=== PATIENT | female | born 1940 | race Caucasian/White ===

== ENCOUNTER 2017-04-27 10:22 | Emergency (ER) | payer MEDICARE, BC ==
[2014-10-25 13:18] VITALS: BMI 26.7
[~2017-04-27 10:22] MED LIST: ALDACTONE25 MG PO; LACTOSE; LASIX20 MG PO; NEXIUM20 MG PO; PROBIOTIC1 EAC1 PO; VITAMIN D3400 UNI1
[2017-04-27 18:25] LABS: BASOPHILS 0.4 % (0-2); EOSINOPHILS 0.6 % (0-7); HEMATOCRIT 27.3 % (36.0-48.0); HEMOGLOBIN 9.8 g/dL (12-16); IMMATURE GRANULOCYTES 0.6 % (0-5); LYMPHOCYTES 14.5 % (15-50); MCH 37.4 pg (26.0-34.0); MCHC 35.9 g/dL (31.0-37.0); MCV 104.2 fL (80.0-100.0); MEAN PLATELET VOLUME 10.8 fL (7.4-10.4); NEUTROPHILS 70.9 % (40-80); RBC 2.62 10x6/uL (4.00-5.40); RDW 15.6 % (11.5-14.5); WBC 5.2 10x3/uL (4.8-10.8)
[2017-04-27 18:39] LABS: INR 2.62 (0.85-1.17); PROTIME 28.2 SECONDS (11.6-15.0)
[2017-04-27 18:43] LABS: PLATELET COUNT 77 10x3/uL (130-400)
[2017-04-27 19:14] LABS: PLATELET ESTIMATE DECREASED
== END 2017-04-27 17:44 | disposition home or self-care (01) ==
LOC: D.ER 10:22 → D.LAB 10:22 → D.ER 17:44
PROVIDERS: Internal Medicine Gastroenterology
DX: M25.552 Pain in left hip (principal)

== ENCOUNTER → 2017-07-27 10:13 | Outpatient (CLI) | payer MEDICARE, BC ==
[2014-10-25 13:18] VITALS: BMI 26.7
[~2017-07-27 10:13] MED LIST changes: +CHRONULAC30 ML PO; +XIFAXAN550 MG PO
== END | disposition home or self-care (01) ==
LOC: D.LAB 10:13
DX: K74.60 Unspecified cirrhosis of liver (principal); Z01.812 Encounter for preprocedural laboratory examination

== ENCOUNTER 2017-07-30 09:57 | Day surgery (SDC) | payer MEDICARE, BC ==
[2017-07-27 10:46] LABS: HEMATOCRIT 26.7 % (36.0-48.0); HEMOGLOBIN 9.8 g/dL (12-16); LYMPHOCYTES 35.7 % (15-50); MCH 37.7 pg (26.0-34.0); MCHC 36.7 g/dL (31.0-37.0); MCV 102.7 fL (80.0-100.0); MEAN PLATELET VOLUME 11.2 fL (7.4-10.4); NEUTROPHILS 51.5 % (40-80); PLATELET COUNT 67 10x3/uL (130-400); RDW 17.8 % (11.5-14.5); WBC 4.1 10x3/uL (4.8-10.8)
[2017-07-27 11:08] LABS: INR 2.22 (0.85-1.17); PROTIME 23.6 SECONDS (11.6-15.0)
[~2017-07-30] VITALS: Ht 170.2 cm; Wt 63.6 kg
--- NOTE | ~2017-07-30 | OP ---
PATIENT NAME: PAXTON HUIZAR MEDICAL RECORD: [id number] LOCATION:D.OPS ADMISSION DATE: SURGEON: MAURI FLYNN MD DATE OF OPERATION: 07/30/2017 PROCEDURE: EGD with biopsy and colonoscopy with biopsy. REFERRING PHYSICIAN: Griselda Calderon MD INDICATION: Ms. 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 She is on lactulose 15 cc twice a day as well as Xifaxan for hyperammonemia. She is chronically anemic, her INR is 2.3. She has a history of colon polyps, has been having diarrhea. Her last colonoscopy was with Dr. Rosalva Graf ([facility]) 10/03/2015 with findings showing medium sized internal hemorrhoids and small non-bleeding AVM seen in the ascending colon. She presents for outpatient EGD and colonoscopy. PREMEDICATIONS: Total IV anesthesia (ASA 3, cirrhosis) propofol 250 mg. INSTRUMENT: Olympus video gastroscope (GIF H190). PROCEDURE AND FINDINGS: After receiving informed consent, Ms. Huizar's posterior pharynx was anesthetized with Cetacaine spray. She was placed in left lateral decubitus position and sedated as per anesthesia. After achieving adequate level of sedation, gastroscope was introduced per orally and advanced into the second portion of duodenum without difficulty. The esophageal mucosa was without erythema, ulcers, strictures, or masses. There were no esophageal varices present. The Z-line was normal in appearance and the small sliding type hiatal hernia was noted. Gastric mucosa was notable for mild prepyloric and antral erythema and antral biopsies were obtained to rule out Helicobacter pylori. There were few scattered tiny angioectasias in the prepyloric and antral region, nonhemorrhagic. There were no varices noted in the cardia or fundus. Pylorus was patent and competent. Duodenal mucosa was without erythema or ulcers, appeared normal through the second portion. Biopsy was taken from the second portion of duodenum. Gastroscope was then withdrawn and Ms. Huizar was then prepared for colonoscopy. Digital rectal exam was performed that showed a few external hemorrhoidal tags, no fissures or fistulas, normal sphincter tone, no palpable rectal masses. The gastroscope was introduced per rectally and advanced to the mid transverse colon. She had abdominopelvic adhesions, which precluded further advancement of the gastroscope. A good prep was present and liquid was collected from the colon and sent for studies A few diverticula were seen scattered in the sigmoid colon. There was also minimal patchy erythema in the sigmoid colon and biopsies were obtained to rule out microscopic colitis. There were few early rectal varices noted, nonhemorrhagic. Ms. Garnica tolerated the procedure well, no immediate complications. ASSESSMENT: 1. Small sliding type hiatal hernia. 2. Small gastric angioectasias, nonhemorrhagic. 3. Mild gastritis. 4. Partial colonoscopy completed to mid transverse colon (adhesions precluded OPERATIVE REPORT [id number] PAXTON HUIZAR further advancement of the gastroscope). 5. Sigmoid diverticulosis coli. 6. Minimal nonspecific colitis may be prep related, status post sigmoid biopsy. 7. Early rectal varices. 8. Diarrhea, may likely be secondary to lactulose. RECOMMENDATIONS: 1. Followup histopathology. 2. Stool sent for studies. 3. Continue lactulose 15 cc twice a day, Xifaxan 550 mg twice a day, and spironolactone 50 mg p.o. daily. TRANSINT:[id number] Voice Confirmation ID: [id number] DOCUMENT ID: [id number] MAURI FLYNN MD at 1806 CC: ROSALVA GRAF MD and GRISELDA CALDERON MD [id number] DICTATION DATE: 07/30/17 1258 MEASUREMENT AND VERIFICATION ENGINEER: 07/30/17 1525 [facility] 07/30/17 [id number] [place] [address]
[~2017-07-30 09:57] MED LIST changes: -CHRONULAC30 ML PO; -XIFAXAN550 MG PO
[2017-07-30 11:14] LABS: BASOPHILS 0.4 % (0-2); EOSINOPHILS 1.6 % (0-7); HEMATOCRIT 28.2 % (36.0-48.0); HEMOGLOBIN 9.9 g/dL (12-16); IMMATURE GRANULOCYTES 0.4 % (0-5); MCH 37.1 pg (26.0-34.0); MCHC 35.1 g/dL (31.0-37.0); MCV 105.6 fL (80.0-100.0); MEAN PLATELET VOLUME 10.2 fL (7.4-10.4); MONOCYTES 7.8 % (2-11); NEUTROPHILS 54.8 % (40-80); RBC 2.67 10x6/uL (4.00-5.40); RDW 16.7 % (11.5-14.5)
[2017-07-30 11:15] LABS: PLATELET COUNT 83 10x3/uL (130-400)
[2017-07-30] MEDS ORDERED: CHRONULAC30 ML PO (11:23)
[2017-07-30 11:24] LABS: INR 2.33 (0.85-1.17); PROTIME 24.9 SECONDS (11.6-15.0)
[2017-07-30] MEDS ORDERED: XIFAXAN550 MG PO (11:25)
[2017-07-30 11:29] VITALS: BP 106/62; Ht 170.2 cm; Wt 63.6 kg
[2017-07-30 11:44] LABS: PLATELET ESTIMATE DECREASED
[2017-07-30 12:02] LABS: ALBUMIN 2.6 g/dL (3.4-5.0); ANION GAP 18.3 mmol/L (8-16); BILIRUBIN - TOTAL 7.24 mg/dL (0.2-1.3); CALCIUM 8.7 mg/dL (8.5-10.1); CARBON DIOXIDE 19.2 mmol/L (21.0-32.0); POTASSIUM - SERUM 4.5 mmol/L (3.5-5.1); PROTEIN - SERUM 6.2 g/dL (6.4-8.2)
== END 2017-07-30 14:00 | disposition home or self-care (01) ==
LOC: D.OPS 09:57
PROVIDERS: Internal Medicine Gastroenterology
DX: K44.9 Diaphragmatic hernia without obstruction or gangrene (principal); K31.819 Angiodysplasia of stomach and duodenum without bleeding; K29.50 Unspecified chronic gastritis without bleeding; K56.50 Intestinal adhesions [bands], unspecified as to partial versus complete obstruction; K57.30 Diverticulosis of large intestine without perforation or abscess without bleeding; K52.89 Other specified noninfective gastroenteritis and colitis; I86.8 Varicose veins of other specified sites; R19.7 Diarrhea, unspecified; K70.30 Alcoholic cirrhosis of liver without ascites; E72.20 Disorder of urea cycle metabolism, unspecified; D64.9 Anemia, unspecified; Z01.812 Encounter for preprocedural laboratory examination

== ENCOUNTER → 2017-08-03 11:59 | Outpatient (CLI) | payer MEDICARE, BC ==
[2017-07-30 11:29] VITALS: BMI 21.9
[~2017-08-03 11:59] MED LIST changes: +CHRONULAC30 ML PO; +XIFAXAN550 MG PO
[2017-08-05 06:15] LABS: ENDOMYSIAL ANTIBODY IGA Negative (Negative)
[2017-08-05 15:21] LABS: ANTIGLIADIN IGA 48 units (0-19); ANTIGLIADIN IGG 20 units (0-19)
== END | disposition home or self-care (01) ==
LOC: D.LAB 11:59
PROVIDERS: Internal Medicine Gastroenterology
DX: R19.7 Diarrhea, unspecified (principal); D72.820 Lymphocytosis (symptomatic)